=== PATIENT | male | born 1960 | race Caucasian/White ===

== ENCOUNTER 2022-02-02 09:37 | Emergency (ER) | payer OTHER, SELFPAY ==
[2022-02-02 10:40] VITALS: BP 124/85; PULSE 89; RESP 20; TEMP 37.3; O2SAT 96; BMI 23.6
--- NOTE | 2022-02-02 11:05 | HMH.EDUTC ---
[facility] [place] Clinical Impression: Gastroenteritis, Viral syndrome Disposition: Home, Self-Care Condition on Discharge: Good Instructions: Viral Gastroenteritis, DI for Viral Gastroenteritis -- Adult, Gastroenteritis Diet Additional Instructions: Drink plenty of fluids. Take tylenol or ibuprofen for pain or fever. Take the medications as directed. Follow up with your regular doctor. GO TO THE ER FOR ANY WORSENING SYMPTOMS The promethazine will make you drowsy, so don't drive or operate heavy machinery after taking it. Prescriptions: Promethazine HCl [Phenergan 25mg tab] 25 mg PO Q6H PRN #20 tab PRN Reason: Nausea And Vomiting Transmission Status: Received by [facility] Referrals: Aramis Vázquez [Primary Care Provider] - Time of Disposition: 13:31 Medical Decision Making - Medical Records Medical records reviewed: No: I reviewed the patient's medical records. - Bay Inquiry Pt receiving controlled substance: No Vital Signs: 02/02/22 10:40 02/02/22 14:39 Temperature 99.1 F 99.1 F Temperature Source Oral Pulse Rate 89 Pulse Rate [Radial] 89 Respiratory Rate 20 20 Blood Pressure 124/85 Blood Pressure [Right Arm] 124/85 Blood Pressure Mean [Right Arm] 98 02 Sat by Pulse Oximetry 96 - Lab Data Lab Results 02/02/22 11:11: Group A Strep Rapid Negative 02/02/22 11:11: Influenza Type A Ag Negative, Influenza Type B Ag Negative 02/02/22 12:00: Sodium 140, Potassium 4.2, Chloride 104, Carbon Dioxide 28, Anion Gap 12.2, BUN 17, Creatinine 0.50 L, Estimated Creat Clear 69, Estimated GFR 169, Est GFR ( Amer) 205, Glucose 93, Calcium 9.0, Total Bilirubin 0.5, AST 41, ALT 29, Alkaline Phosphatase 101, Total Protein 6.8, Albumin 4.1, Globulin 2.7, Albumin/Globulin Ratio 1.5, Amylase 69, Lipase 32 02/02/22 12:26: WBC 6.5, RBC 4.88, Hgb 15.5, Hct 45.6, MCV 93.3, MCH 31.7 H, MCHC 34.0, RDW 12.5, Plt Count 146, MPV 8.5, Neut % (Auto) 61.8, Lymph % (Auto) 26.8, [place] % (Auto) 9.1, Eos % (Auto) 0.6, Baso % (Auto) 1.6, Neut # (Auto) 4.0, Lymph # (Auto) 1.7, [place] # (Auto) 0.6, Eos # (Auto) 0.0, Baso # (Auto) 0.1 Result diagrams: 02/02/22 12:26 02/02/22 12:00 Orders (Tests/Meds): ED MEDICATIONS Discontinued Medications Generic Name Dose Route Start Last Admin Trade Name Rema PRN Reason Stop Dose Admin Promethazine HCl 25 mg 02/02/22 12:04 02/02/22 12:11 Promethazine Hcl 25mg/Ml 1ml Vial IV 02/02/22 12:05 25 mg ONCE ONE Administration Sodium Chloride 25 ml 02/02/22 12:04 02/02/22 12:12 Sodium Chloride 0.9% 25ml Bag IV 02/02/22 12:05 25 ml ONCE ONE Administration ORDERS Category Date Time Status Strep Screen Confirmation Stat Micro 02/02/22 11:11 Received Medical Decision Narrative: He refused a covid-19 swab or viral swab. [facility] [place] H[place] - General Stated complaint: vomiting since 01/30 Time Seen by Provider: 02/02/22 11:05 Mode of Arrival: Ambulatory Source of Information: Patient Limitations: No Limitations Description of Symptoms (Recalled from Triage Doc. by RN): pt c/o nausea, vomitting and dry heaves. pt has been unable to keep anything down for 3 days. he has not taken his medications. he was prescribed zofran odt by his pcp but he states that it does not help HEENT Symptoms (Recalled from RN notes): No Resp Symptoms (Recalled from RN notes): No Skin Symptoms (Recalled from RN notes): No MS Symptoms (Recalled from RN notes): No Functional Status (Recalled from RN notes): wnl - History of Present Illness Provider Complaint: He states that for the past 3 to 4 days he has had n/v/d. He has had chilling but no fever. He denies abdominal pain. - Related Data Home Medications Medication Instructions Recorded Confirmed buprenorphine 8 mg-naloxone 2 mg 1 film SUBLINGUAL DAILY 08/15/18 09/19/18 sublingual film phenytoin sodium extended 100 mg 100 mg PO TID 08/15/18 09/19/18 capsule ranitidine HCl 150 m
[2022-02-02 11:23] LABS: UTC Influenza A Antigen Negative (Negative)
[2022-02-02 11:24] LABS: UTC Influenza B Antigen Negative (Negative)
[2022-02-02 11:46] LABS: Strep Scrn Group A (Rapid) Negative (Negative)
[2022-02-02 12:27] LABS: Alanine Aminotransferase 29 U/L (12-78); Albumin Level 4.1 g/dl (3.5-5.0); Albumin/Globulin Ratio 1.5 (1.1-1.8); Alkaline Phosphatase 101 U/L (38-126); Amylase 69 U/L (30-110); Anion Gap 12.2 mEq/L (5-15); Aspartate Amino Transferase 41 U/L (17-59); Bilirubin,Total 0.5 mg/dl (0.2-1.3); Blood Urea Nitrogen 17 mg/dl (9-20); Carbon Dioxide 28 mmol/L (22.0-30.0); Chloride 104 mmol/L (98-107); Creatinine Clearance Estimated 69 mL/min (50-200); Estimated Glomerular Filt Rate 169 ml/min (>60); GFR (African American) 205 ML/MIN (>60); Globulin 2.7 g/dL (1.3-3.2); Glucose 93 mg/dl (74-100); Lipase 32 U/L (23-300); Potassium 4.2 mmoL/L (3.5-5.1); Sodium 140 mmol/L (136-145); Total Protein,Serum 6.8 g/dl (6.3-8.2)
[2022-02-02 12:35] LABS: Basophils # 0.1 K/mm3 (0-0.2); Basophils % 1.6 % (0.1-2.0); Eosinophils % 0.6 % (0.1-12.0); Hematocrit 45.6 % (42.0-52.0); Hemoglobin 15.5 g/dL (14.1-18.0); Lymphocytes # 1.7 K/mm3 (0.7-4.5); Lymphocytes % 26.8 % (10-50); Mean Corpuscular Hemoglobin 31.7 pg (27.0-31.2); Mean Corpuscular Volume 93.3 fl (80-94); Mean Platelet Volume 8.5 fl (7.4-10.4); Monocytes # 0.6 K/mm3 (0.1-1.0); Monocytes % 9.1 % (1.7-9.3); Neutrophils % 61.8 % (37.0-80.0); Platelet Count 146 K/mm3 (142-424); Red Blood Count 4.88 M/mm3 (4.60-6.20); Red Cell Distribution Width 12.5 % (11.5-17.5); White Blood Count 6.5 K/mm3 (4.8-10.8)
[2022-02-02 14:39] VITALS: BP 124/85; PULSE 89; RESP 20; TEMP 37.3
== END 2022-02-02 14:44 | disposition home or self-care (01) ==
PROVIDERS: Emergency Provider Nurse Practitioner Family; PCP Family Medicine
DX: K52.9 Noninfective gastroenteritis and colitis, unspecified (principal); B34.9 Viral infection, unspecified; K21.9 Gastro-esophageal reflux disease without esophagitis; Z87.891 Personal history of nicotine dependence; Z79.899 Other long term (current) drug therapy
CPT/HCPCS: 36415; 80053; 82150; 83690; 85025; 87430; 87804; 96374; 99213; G0463

== ENCOUNTER 2025-02-25 10:48 | Outpatient (CLI) | payer OTHER, SELFPAY ==
[2025-02-25 16:53] LABS: Basophils % 0.5 % (0.1-2.0); Eosinophils # 0.1 Kmm3 (0.0-0.4); Hematocrit 44.9 % (42.0-52.0); Hemoglobin 14.6 g/dL (14.1-18.0); Immature Granulocytes # 0.01 10^3uL; Immature Granulocytes % 0.2 %; Lymphocytes # 1.2 K/mm3 (0.7-4.5); Lymphocytes % 20.1 % (10-50); Mean Corpuscular HGB Conc 32.5 g/dL (31.8-35.4); Mean Corpuscular Hemoglobin 30.4 pg (27.0-31.2); Mean Corpuscular Volume 93.3 fl (80-94); Mean Platelet Volume 12.4 fl (7.4-10.4); Monocytes # 0.5 K/mm3 (0.1-1.0); Monocytes % 8.2 % (1.7-9.3); Neutrophils # 4.1 K/mm3 (1.8-7.8); Nucleated Red Blood Cells # 0 10^3/uL; Nucleated Red Blood Cells % 0 %; Platelet Count 151 K/mm3 (142-424); Red Blood Count 4.81 M/mm3 (4.60-6.20); Red Cell Distribution Width 11.7 % (11.5-17.5); Red Cell Distribution Width-SD 39.8 fL; White Blood Count 5.9 K/mm3 (4.8-10.8)
[2025-02-25 17:50] LABS: Alanine Aminotransferase 23 U/L (12-78); Albumin Level 4.7 g/dl (3.5-5.0); Albumin/Globulin Ratio 1.9 (1.1-1.8); Alkaline Phosphatase 122 U/L (38-126); Anion Gap 12.9 mEq/L (5-15); Aspartate Amino Transferase 31 U/L (17-59); Bilirubin,Total 0.3 mg/dl (0.2-1.3); Blood Urea Nitrogen 23 mg/dl (9-20); Calcium 9.2 mg/dl (8.4-10.2); Carbon Dioxide 29 mmol/L (22.0-30.0); Chloride 103 mmol/L (98-107); Estimated Glomerular Filt Rate 136 ml/min (>60); GFR (African American) 164 ML/MIN (>60); Globulin 2.5 g/dL (1.3-3.2); Glucose 104 mg/dl (74-100); Potassium 4.9 mmoL/L (3.5-5.1); Sodium 140 mmol/L (136-145); Total Protein,Serum 7.2 g/dl (6.3-8.2)
[2025-02-25 18:05] LABS: T4 (Thyroxine) 7.2 ug/dl (5.53-11.0)
[2025-02-25 18:19] LABS: Thyroid Stimulating Hormone 0.83 uIU/mL (0.465-4.68)
[2025-02-25 19:05] LABS: HIV Combo NEGATIVE (Negative)
[2025-02-25 19:12] LABS: Hepatitis C Ab Qual. W/ RFX REACTIVE (Negative)
--- OUTSIDE RECORDS SUMMARY | 2025-02-26 10:46 | XMS_ITS | Data Portability ---
Author Organization [facility] ADMIN Address [address] [place] [id number] Assessment No assessment recorded. Plan of Treatment Reminders Order Date Submit Date Provider Last Modified By Organization Details Last Modified Time Details Appointments None record ed. Lab None record ed. Referral None record ed. Procedures None record ed. Surgeries None record ed. Imaging None record ed. Medication Orders None record ed. Patient TargetsNo targets recorded. Patient InstructionsNo instructions recorded. Reason for Referral None Reported. Results Created Date Observation Date Name Description Value Unit Range Abnormal Flag Note LastModifiedBy Organization Detail LastModifiedTime 12/08/19 23 12/07/2022 audio gram No observ ation record ed. BARCODE Not Available 2022 10:47:06 Result Notes None recorded. Problems Name Problem SNOMED Code Status Onset Date Resolution Date Notes Provider Name and Address Organization Details Recorded Time Sensorineural hearing loss 89733768 Active 2022 BUCKY COOK, AUD [address] [facility], [place], [address] , [facility] & [place] 3 09:48:25 Problem Notes None recorded. Medical Equipment None Reported. Allergies Allergen ID Allergen Name Allergen Category Reaction Reaction Severity Criticality Documentation Date Start Date Code Code System Note Provider Name and Address Organization Details Recorded Time 18842 codeine medicatio n nausea Not available high 12/07/2022 2670 [facility] [place] 3 09:07:20 Medications Name Sig Start Date Stop Date Status Note LastModified by Organization Details LastModified Time atorvastati n 40 mg tablet take 1 tablet by mouth daily to lower cholester ol 12/07 completed Not Available Not Available Not Available prednisone 10 mg tablet Tapering daily dose as outlined 5,5,4,4,3 ,3,2,2,1, 1 active Not Available Not Available No t Available azithromyci n 250 mg tablet TAKE 2 TABLETS BY MOUTH ON DAY 1, THEN TAKE 1 TABLET DAILY ON DAYS 2-5 12/07 completed Not Available Not Available Not Available pravastatin 40 mg tablet take 1 tablet by mouth to improve cholester ol 12/07 completed Not Available Not Available Not Available meloxicam 15 mg tablet take 1 tablet by mouth daily as needed for back/side pain active Not Available Not Available No t Available ondansetron HCl 4 mg tablet TAKE 1 tablet Every 6 Hours active Not Available Not Available No t Available Nexium 40 mg capsule,del ayed release Take 1 capsule every day by oral route as directed for 90 days. 12/07 completed Not Available Not Available Not Available phenytoin 125 mg/5 mL oral suspension take 4 ml by mouth 3 times daily as prescribe d 12/07 completed Not Available Not Available Not Available prednisolon e acetate 1 % eye drops,suspe nsion INSTILL 1 DROP INTO LEFT EYE 4 TIMES DAILY FOR 7 DAYS AND THEN INSTILL 1 DROP TWICE DAILY FOR 7 DAYS. 12/07 completed Not Available Not Available Not Available dicyclomine 20 mg tablet TAKE ONE TABLET BY MOUTH FOUR TIMES DAILY NEEDED active Not Available Not Available No t Available meclizine 25 mg tablet TAKE 1 TABLET BY MOUTH 4 TIMES DAILY FOR dizziness active Not Available Not Available No t Available erythromyci n 5 mg/gram (0.5 %) eye ointment place 1/2 inch to the affected eye(s)) 4 times daily for 5-7 days active Not Available Not Available No t Available neomycin-po lymyxin-dex ameth 3.5 mg/mL-10,00 0 unit/mL-0.1 % eye drops place ONE drop IN THE LEFT EYE FOUR TIMES DAILY FOR FOUR DAYS DIRECTED active Not Available Not Available No t Available lidocaine 5 % topical patch APPLY 1 patch daily to affected area active Not Available Not Available No t Available promethazin e 25 mg tablet Take 1 tablet(s) by mouth every 4 to 6 hours as needed for nausea or vomiting. 12/07 completed Not Available Not Available Not Available polyethylen e glycol 3350 17 gram/dose oral powder DISSOLVE ONE capful(17 grams) in EIGHT ounces of water DAILY active Not Available Not Available No t Available ipratropium bromide 42 mcg (0.06 %) nasal spray Place 2 sprays into each nostril 2 times daily as needed active Not Available Not Available No t Available ondansetron 4 mg disintegrat ing tablet PLACE 1-2 TABLETS ON THE TONGUE AND ALLOW TO DISSOLVE EVERY 8 HOURS NEEDED FOR NAUSEA/VO MITING active Not Available Not Available No t Available fluticasone propionate 50 mcg/actuati on nasal spray,suspe nsion Place ONE SPRAY in each nostril TWICE DAILY active Not Available Not Available No t Available buprenorphi ne 8 mg-naloxone 2 mg sublingual tablet dissolve 2&1/2 tablets under the tongue daily active Not Available Not Available No t Available cyclobenzap rine 5 mg tablet take 1 tablet by mouth 3 times daily as needed for muscle spasm active Not Available Not Available No t Available rosuvastati n 10 mg tablet TAKE 1 tablet BY MOUTH DAILY to improve cholester ol 12/07 completed Not Available Not Available Not Available mirtazapine 7.5 mg tablet Take 1-2 tablets at bedtime as needed for sleep active Not Available Not Available No t Available Nexium Packet 40 mg granules delayed release for susp take 1 packet mixed with 15 ml of water Once a day for 30 day(s) active Not Available Not Available No t Available Dilantin Extended 100 mg capsule TAKE ONE CAPSULE BY MOUTH THREE TIMES DAILY active Not Available Not Available No t Available Vitals Date Recorded Body height Body mass index (BMI) Body weight Body temperature Heart rate Systolic blood pressure Diastolic blood pressure Provider Name and Address Organization Details Last Updated DateTime 3 162.56 cm 23.5 kg/m2 31439.1 5 g 98.1 [degF] 99 /min 138 mm[Hg] 84 mm[Hg] [facility] & [place] 3 09:11:30 Social History None recorded. Functional Status None recorded. Mental Status None recorded. Family History Nothing Reported. Medical History Condition Response Acid Reflux (GERD) Y Past Encounters Encounter ID Performer Location Encounter Start Date Encounter Closed Date Diagnosis/Indication Diagnosis SNOMED-CT Code Diagnosis ICD10 Code Diagnosis Note [id number] Anamaria Rutherford MD [facility] [place] [address], [place] [address] 12/07/2022 08:54:45 12/07/2022 09:45:35 Presbycusis 39191109 H91.13 High frequ ency sensorineural hearing loss of bilateral ears [id number] 444544 H90.3 Audiogram reviewed. He does have hearing aids from his father that were serviced and fitted for him today. [id number] DANA KEENAN [facility] [facility], [place] [address] 12/07/2022 09:47:24 12/07/2022 09:47:48 Sensorineural hearing loss 86683657 H90.3 Health Concerns Section Related Observation LastModified by Organization Detai ls LastModified Time None Recorded Concern Status LastModified by Organization Details LastModified Time None Recorded Advance Directives Directive None Recorded Payers Insurance Date Sequence Insurance Name Policy Number Policy Jackson Covered Member ID Jackson Member ID Guarantor Name 04/13/2024 1 [facility] (MEDICAID HMO) Moris Kimbrough [id number] Moris Kimbrough Notes Date Note Type Note Provider Name and Address Organization Details Recorded Time 12/07/2022 text/html Mr. Kimbrough is Her e today for evaluation of hearing loss. Reports that he did have a hearing test at [facility] several years ago. He was told he needed hearing aids at that time but could not afford them. His father is and he does have his old hearing aids and is interested to know if these can possibly be fitted for him. He has been trying to wear them but they are painful if he wears them for a prolonged period of time. Anamaria Rutherford MD [address] [facility], [place], [address], [facility] & [place] 12/07/2022 13:21:20 12/07/2022 text/html Mr. Kimbrough was se en today for an audiologic evaluation due to long-standing/grad ual hearing loss bilaterally per Dr. Anamaria Rutherford MD. Mr. Kimbrough reports that he has some difficulty hearing well in background noise and in social settings. He denies ear pain, drainage, aural fullness/pressure, and dizziness/vertigo. Otoscopic inspection was unremarkable bilaterally following cerumen removal by Dr. Rutherford. BUCKY COOK, AUD [address] [facility], [place], [address], [facility] [place] & [place] 12/07/2022 09:55:53
[2025-02-26 11:23] LABS: Hepatitis B Surface Antigen Negative (Negative)
== END 2025-02-25 23:59 | disposition home or self-care (01) ==
LOC: LAB.DROPOF 02-26 10:44
PROVIDERS: PCP Family Medicine; Visit Provider Family Medicine
DX: K21.9 Gastro-esophageal reflux disease without esophagitis (principal); R53.83 Other fatigue; Z11.59 Encounter for screening for other viral diseases; Z11.4 Encounter for screening for human immunodeficiency virus [HIV]
CPT/HCPCS: 80053; 84402; 84403; 84436; 84443; 85025; 86803; 87389; 87522

== ENCOUNTER 2025-04-16 10:41 | Outpatient (CLI) | payer OTHER, SELFPAY ==
--- OUTSIDE RECORDS SUMMARY | 2025-04-16 10:46 | XMS_ITS | Encounter Summary ---
Author Organization [employer] ([place], [place], [place], [place]) Address [address] [place] [address] Care Team Providers Care Poultry Buyer Name Role Phone Aramis Vázquez MD Primary Care Provider [phone] Reason for Referral * Consultation (Routine) - Closed Specialty Diagnoses / Procedures Referred By Suzanna hawkins Referred To Contact Cardiology Diagnoses Chest pain Amy Gomez, SOLAR INSTALLATION FOREMAN [address] [address] Phone: tel: fax: Sharyn Dillon PA-C [address] [facility] [address] [place] [address] Phone: tel: fax: Referral ID Status Reason Start Date Expiration Date V isits Requested Visits Authorized [id number] Closed Specialty Services Required 11/01/2024 11/01/2025 1 1 Encounter Details Date Type Department Care Team (Late st Contact Info) Description 11/01/2024 Outside Orders [facility] - [place] [address] [place] [address] Amy Gomez, SOLAR INSTALLATION FOREMAN [address] [facility] [address] [place] [address] Chest pain (Primary Dx) Social History Tobacco Use Types Packs/Day Years Used Date Smoking Tobacco: Every Day Cigarettes Smokeless Tobacco: Never Alcohol Use Standard Drinks/Week Comments Never 0 (1 standard drink = 0.6 oz pur e alcohol) Family and Community Support Answer Ernesto e Recorded Help with Day to Day Activities Not on file 10/05/2023 Feeling Lonely or Isolated Not on file 10/05 Educational Attainment Answer Date Tyler rded Speak language other than Citizen [place] at home Not on file 10/05/2023 Want help with school or training Not on file 10/05/2023 Substance Use Answer Date Recorded Used prescription meds for non-medical reasons N ot on file 10/05/2023 Used illegal drugs past 12 months Not on file 10/05/2023 Sex and Gender Information Value Date Recorded Sex Assigned at Not on file Legal Sex Male 5:23 PM CDT Gender Identity Not on file Sexual Orientation Not on file documented as of this encounter Plan of Treatment Upcoming Encounters Date Type Department Care Team (Late st Contact Info) Description 06/16/2025 10:30 AM EDT Office Visit [facility] - [place] [address] [place] [address] Sharyn Dillon PA-C [address] [facility] [address] [place] [address] Scheduled Referrals Name Type Priority Associated Diagnoses Order Schedule Ambulatory referral to Cardiology Outpatient Referral Routine Chest pain Expected: 11/01/2024, Expires: 11/01/2025 documented as of this encounter Visit Diagnoses Diagnosis Chest pain- Primary Unspecified chest pain documented in this encounter Care Teams Poultry Buyer Relationship Specialty Start Date End Date Aramis Vázquez MD [address] [place] [address] PCP - General Family Medicine 09/17/22 documented as of this encounter
--- OUTSIDE RECORDS SUMMARY | 2025-04-16 10:47 | XMS_ITS | Clinical Summary ---
Author Organization [employer] ([place], [place], [place], [place]) Address [address] [place] [address] Care Team Providers Care Supervisor Dyer Name Role Phone Aramis Vázquez MD Primary Care Provider [phone] Allergies Active Allergy Reactions Criticality Noted Date Comments Codeine Nausea And Vomiting, Other (See Comments) 02/02/2022 Medications dicyclomine (BENTYL) 20 mg tablet Take 1 tablet (20 mg total) by mouth 4 (four) times daily as needed. 4 Active ondansetron (ZOFRAN-ODT) 4 MG disintegrating tablet 1 tablet (4 mg total). 4 Active Dilantin Extended 100 mg ER capsule Take 1 capsule (100 mg total) by mouth 3 (three) times daily. 4 Active sucralfate (Carafate) 1 gram tabletIndications: Gastroesophageal reflux disease, unspecified whether esophagitis present,Gastritis Take 1 tablet (1 g total) by mouth 4 (four) times daily before meals and nightly. 120 tablet 4 025 Active NexIUM 40 mg capsuleIndications :Gastroesophageal reflux disease, unspecified whether esophagitis present,Gastritis, Epigastric abdominal pain,Dilated pancreatic duct,Epigastric pain,Hiatal hernia,Gastroesoph ageal reflux disease without esophagitis Take 1 capsule (40 mg total) by mouth Daily (0600). 30 capsule 5 4 025 Active buprenorphine-nalo xone (SUBOXONE) 8-[address] under the tongue. 5 Active cyclobenzaprine (FLEXERIL) 5 MG tablet Take 1 tablet (5 mg total) by mouth 3 (three) times daily as needed. Active lidocaine (LIDODERM) 5 % ptmd patch 1 patch daily. Active meloxicam (MOBIC) 15 MG tablet Take 1 tablet (15 mg total) by mouth daily. Active phenytoin (DILANTIN) 125 mg/5 mL suspension Take by mouth. 02 5 Active polyethylene glycol (MIRALAX) 17 gram/dose powder Take 17 g by mouth daily. Active promethazine (PHENERGAN) 25 MG tablet Take 1 tablet (25 mg total) by mouth 2 (two) times daily as needed. Active ipratropium (ATROVENT) 21 mcg (0.03 %) 0.03% nasal spray Administer 2 sprays into each nostril 2 (two) times daily. Active sertraline (ZOLOFT) 25 MG tablet Take 1 tablet (25 mg total) by mouth daily. Active Active Problems Problem Noted Date Diagnosed Date Gastroenteritis 11/01/2024 Gastroesophageal reflux disease without esophagi tis 12/15/2023 Irritable bowel syndrome 12/15/2023 Chronic low back pain 08/21/2017 Overview (11/01/2024): Problem Code: M54.5; Problem Code Type: ICD-10; Mumps Hyperlipidemia Chest pain Seizures Family History Medical History Relation Name Comments Drug abuse Other Relation Name Status Comments Other Social History Tobacco Use Types Packs/Day Years Used Date Smoking Tobacco: Every Day Cigarettes Smokeless Tobacco: Never Tobacco Cessation:Ready to Q uit: Not Asked; Counseling Given: Not Answered Alcohol Use Standard Drinks/Week Comments Never 0 (1 standard drink = 0.6 oz pur e alcohol) Family and Community Support Answer Ernesto e Recorded Help with Day to Day Activities Not on file 10/05/2023 Feeling Lonely or Isolated Not on file 10/05 Educational Attainment Answer Date Tyler rded Speak language other than [place] at home Not on file 10/05/2023 Want [...] on file Sexual Orientation Not on file Last Filed Vital Signs Vital Sign Reading Time Taken Comments Blood Pressure 120/80 12/12/2024 10:55 AM EDT Pulse 102 12/12/2024 10:55 AM EDT Temperature 36.8 C (98.3 F) 09/17/2024 11:11 AM EST Respiratory Rate 20 11/14/2024 10:43 AM EST Oxygen Saturation 95% 12/12/2024 10:55 AM EDT Inhaled Oxygen Concentration - - Weight 59 kg (130 lb) 12/12/2024 10:55 AM EDT Height 162.6 cm (5' 4 ) 12/12/2024 10:55 AM EDT Body Mass Index 22.31 12/12/2024 10:55 AM EDT Plan of Treatment Upcoming Encounters Date Type Department Care Team (Late st Contact Info) Description 06/16/2025 10:30 AM EDT Office Visit [facility] - [place] [address] [place] [address] Sharyn Dillon PA-C [address] [facility] [address] [place] [address] Health Maintenance Due Date Last Done Comments CT Colonography 1960 Colonoscopy 1960 Colorectal Cancer Screening 1960 FOBT/FIT 1960 Fit-DNA (Cologuard) 1960 Sigmoidoscopy 1960 Depression Screening (12+) 1972 Tobacco Cessation Counseling and Screening (12+) 1972 HIV Screening 1975 Hepatitis C Screening 1978 Pneumococcal 50+ years (1 of 2 - PCV) 1979 Lipid Panel 1995 Shingles Vaccine (Zoster) (2 of 2) 11/24/20212021 COVID-19 VACCINE (3 - season) 2024, 04/18/2021 DTAP/TDAP/TD VACCINES (2 - Td or Tdap) 04/15/2025 Influenza Vaccine (#1) 2025 Respiratory Syncytial Virus (RSV) Adult or (1 - 1-dose 75+ series) 2035 Insurance [employer] [place] Care Teams Supervisor Dyer Relationship Specialty Start Date End Date Aramis Vázquez MD [place] [address] PCP - General Family Medicine 09/17/22
--- OUTSIDE RECORDS SUMMARY | 2025-04-16 10:47 | XMS_ITS | Clinical Summary ---
Author Organization [employer] [facility] Address [address] [place] [address] Care Team Providers Care Fire Hose Curer Name Role Phone Unavailable Primary Care Provider Unavailabl e Social History Tobacco Use Types Packs/Day Years Used Date Smoking Tobacco: Never Assessed Abuse Screen Answer Date Recorded Unsafe at Home or Work/School Not on file Feels Threatened by Someone? Not on file 07/2023 Does Anyone Keep You from Co ntacting Others or Doint Things Outside the Home? Not on file 07/05/2023 Physical Sign of Abuse Present Not on file 1 Housing Stability Answer Date Recorded Current Living Arrangements Not on file 06/25 Potentially Unsafe Housing Conditions Not on eugene e 07/05/2023 Family and Community Support Answer Ernesto e Recorded Help with Day-to-Day Activities Not on file 07/05/2023 Lonely or Isolated Not on file 07/05/2023 Employment Answer Date Recorded Do you want help finding or keeping work or a daniel b? Not on file 07/05/2023 Disabilities Answer Date Recorded Concentrating, Remembering, or Making Decisions Difficulty Not on file 07/05/2023 Doing Errands Independently Difficulty Not on fi le 07/05/2023 Education Answer Date Recorded Help with school or training? Not on file Preferred Language Not on file 07/05/2023 Sex and Gender Information Value Date Recorded Sex Assigned at Not on file Legal Sex Male 12:27 PM EDT Gender Identity Not on file Sexual Orientation Not on file Plan of Treatment Health Maintenance Due Date Last Done Comments ANNUAL PHYSICAL 1960 HEPATITIS C SCREENING 1960 TDAP/TD VACCINES (1 - Tdap) 1979 COLOGUARD 2005 COLON CANCER SCREENING 5 YEAR SIGMOIDOSCOPY 2005 COLONOSCOPY [address] CANCER SCREENING [address] COLONOGRAPHY 2005 FECAL OCCULT BLOOD TEST 2005 FIT Testing (1 year) 2005 Pneumococcal Vaccine 50+ (1 of 1 - PCV) 2010 ZOSTER VACCINE (1 of 2) 2010 COVID-19 Vaccine ( - 2023-25 season) 2024 INFLUENZA VACCINE 06/25/2025
--- OUTSIDE RECORDS SUMMARY | 2025-04-16 10:47 | XMS_ITS | Encounter Summary ---
Author Organization Healthcare Address [address] [place] [address] Care Team Providers Care Highway Commissioner Name Role Phone Yadira Boston APRN Primary Care Provider [phone] Reason for Referral * Consultation (Routine) - Authorized Specialty Diagnoses / Procedures Referred By Contac t Referred To Contact Gastroenterology Diagnoses Weight loss, unintentional Dilated pancreatic duct Olman Vaughn MD [address] [place] [address] Phone: tel: fax: Referral ID Status Reason Start Date Expiration Date Visits Requested Visits Authorized [id number] Authorized Specialty Services Required 07/02/2024 01/01/2026 1 1 Encounter Details Date Type Department Care Team (Latest Contact Info) Description 07/02/2024 [facility] [address] [place] [address] Olman Vaughn MD [address] [place] [address] Weight loss, unintentional (Primary Dx); Dilated pancreatic duct Social History Tobacco Use Types Packs/Day Years Used Date Smoking Tobacco: Every Day Sex and Gender Information Value Date Recorded Sex Assigned at Not on file Legal Sex Male 8:19 PM EDT Gender Identity Not on file Sexual Orientation Not on file documented as of this encounter Plan of Treatment Scheduled Referrals Name Type Priority Associated Diagnoses Order Schedule Ambulatory referral to Gastroenterology Outpatient Referral Routine Weight loss, unintentional Dilated pancreatic duct Expected: 07/02/2024 (Approximate), Expires: 12/31/2025 documented as of this encounter Visit Diagnoses Diagnosis Weight loss, unintentional- Primary Loss of weight Dilated pancreatic duct documented in this encounter Care Teams Highway Commissioner Relationship Specialty Start Date End Date Yadira Boston, PERCY [address] [place] [address] PCP - General 02/05/21 documented as of this encounter
--- OUTSIDE RECORDS SUMMARY | 2025-04-16 10:47 | XMS_ITS | Referral Summary ---
Author Organization [facility] ([place], [place], [place], [place]) Address [address] [place] [address] Care Team Providers Care Container Coordinator Name Role Phone Aramis Vázquez MD Primary Care Provider [phone] Allergies Active Allergy Reactions Criticality Noted Date [...] Type: ICD-10; Mumps Hyperlipidemia Chest pain Seizures Social History Tobacco Use Types Packs/Day Years [...] Date Tyler rded Speak language other than Upper Sorbian at home Not on file 10/05/2023 Want [...] Description 06/16/2025 10:30 AM EDT Office Visit [facility] Card[facility] - [place] [address] [place] [address] Sharyn Dillon PA-C [address] [address] [facility] Care Teams Container Coordinator Relationship Specialty Start Date End Date Aramis Vázquez MD [address] [place] [address] PCP - General Family Medicine 09/17/22
--- OUTSIDE RECORDS SUMMARY | 2025-04-16 10:47 | XMS_ITS | Clinical Summary ---
Author Organization Healthcare Address [address] [place] [address] Care Team Providers Care Resistor Inspector Name Role Phone Yadira Boston EPRCY Primary Care Provider [phone] Immunizations Immunization Administration Dates Next Due Tdap 04/15/2015 Family History Medical History Relation Name Comments Conversions - Other Father Bypass g raft stenosis Diabetes Father Other cancer Father Hernia Mother Relation Name Status Comments Father Mother Social History Tobacco Use Types Packs/Day Years Used Date Smoking Tobacco: Every Day Sex and Gender Information Value Date Recorded Sex Assigned at Not on file Legal Sex Male 8:19 PM EDT Gender Identity Not on file Sexual Orientation Not on file Last Filed Vital Signs Vital Sign Reading Time Taken Comments Blood Pressure - - Pulse - - Temperature - - Respiratory Rate - - Oxygen Saturation - - Inhaled Oxygen Concentration - - Weight 58.1 kg (128 lb) 03/02/2015 1:30 PM EDT Height 162.6 cm (5' 4 ) 03/02/2015 1:30 PM EDT Body Mass Index 21.97 03/02/2015 1:30 PM EDT Plan of Treatment Health Maintenance Due Date Last Done Comments [facility]-Depression Screening 1960 [facility]-Infant/Child/Adol SDOH Screenings 1960 [facility]- SDOH Screenings 1978 [facility]-Adult SDOH Screenings 1978 CT Colonography 2005 Colonoscopy 2005 FIT 2005 FOBT 2005 Sigmoidoscopy 2005 [facility]-Pneumococcal Vaccine: 50 + Years (1 of 1 - PCV) 2010 [facility]-Zoster Vaccines (2 of 2) 11/24/2021 09/29/2021 [id number] Vaccine ( - 2023- season) 2024 05/16/2021, 04/18/2021 [facility]-DTaP,Tdap,and Td Vaccine s (2 - Td or Tdap) 04/15/2025 04/15/2015 [facility]-Influenza Vaccine (#1) 2025 FIT-DNA 01/15/2027 01/16/2024 [facility]-Colorectal Cancer Screening 01/15/2027 [facility]-RSV Vaccine: 60+ Years o r (1 - 1-dose 75+ series) 2035 HPV Vaccines Aged Out No longer eligi ble based on patient's age to complete this topic [facility]-HIB Vaccines Aged Out No longer e ligible based on patient's age to complete this topic [facility]-Hepatitis A Vaccines Aged Out No longer eligible based on patient's age to complete this topic [facility]-IPV Vaccines Aged Out No longer e ligible based on patient's age to complete this topic [facility]-Rotavirus Vaccines Aged Out No lo nger eligible based on patient's age to complete this topic Care Teams Resistor Inspector Relationship Specialty Start Date End Date Yadira Boston, PERCY [address] [place] [address] PCP - General 02/05/21
[2025-04-16 11:27] LABS: Hematocrit 42.9 % (42.0-52.0); Hemoglobin 14.1 g/dL (14.1-18.0); Mean Corpuscular HGB Conc 32.9 g/dL (31.8-35.4); Mean Corpuscular Hemoglobin 30.3 pg (27.0-31.2); Mean Corpuscular Volume 92.1 fl (80-94); Platelet Count 149 K/mm3 (142-424); Red Blood Count 4.66 M/mm3 (4.60-6.20); White Blood Count 5.8 K/mm3 (4.8-10.8)
[2025-04-16 11:58] LABS: Albumin Level 4.5 g/dl (3.5-5.0); Chloride 100 mmol/L (98-107); Sodium 135 mmol/L (136-145)
[2025-04-16 11:59] LABS: Potassium 4.6 mmoL/L (3.5-5.1)
[2025-04-16 12:01] LABS: Alanine Aminotransferase 22 U/L (12-78); Albumin/Globulin Ratio 1.7 (1.1-1.8); Alkaline Phosphatase 124 U/L (38-126); Anion Gap 8.6 mEq/L (5-15); Aspartate Amino Transferase 32 U/L (17-59); Bilirubin,Total 0.7 mg/dl (0.2-1.3); Blood Urea Nitrogen 29 mg/dl (9-20); Carbon Dioxide 31 mmol/L (22.0-30.0); Creatinine,Serum 0.60 mg/dl (0.66-1.25); Estimated Glomerular Filt Rate 136 ml/min (>60); GFR (African American) 164 ML/MIN (>60); Globulin 2.6 g/dL (1.3-3.2); Total Protein,Serum 7.1 g/dl (6.3-8.2)
[2025-04-16 12:02] LABS: Calcium 9.5 mg/dl (8.4-10.2); Glucose 114 mg/dl (74-100)
[2025-04-16 12:52] LABS: RBC Morphology Normal; Total Cells Counted 100
[2025-04-16 21:30] LABS: Phenytoin (Dilantin) 8.8 ug/ml (10-20)
[2025-04-16 22:17] LABS: Vitamin B12 823 pg/mL (239-931)
[2025-04-16 23:47] LABS: Folate 10.30 ng/mL
[2025-04-18 15:15] LABS: Phenytoin (Dilantin) Free 0.7 ug/mL (1.0-2.0)
== END 2025-04-16 23:59 | disposition home or self-care (01) ==
LOC: LAB 10:42
PROVIDERS: PCP Family Medicine; Visit Provider Specialist
DX: Z86.69 Personal history of other diseases of the nervous system and sense organs (principal); Z79.899 Other long term (current) drug therapy
CPT/HCPCS: 36415; 80053; 80185; 80186; 82607; 82746; 85007; 85014; 85018; 85048; 85049

== ENCOUNTER 2025-04-23 08:56 | Outpatient (CLI) | payer OTHER, SELFPAY ==
--- OUTSIDE RECORDS SUMMARY | 2025-04-23 08:58 | XMS_ITS | Encounter Summary ---
Author Organization [employer] ([place], [place], [place], [place]) Address [address] [place] [address] Care Team Providers Care Solaris Administrator Name Role Phone Aramis Vázquez MD Primary Care Provider [phone] Reason for Referral * Consultation (Routine) - Closed Specialty Diagnoses / Procedures Referred By Suzanna hawkins Referred To Contact Cardiology Diagnoses Chest pain Amy Gomez, NIGHT MANAGER [address] [address] Phone: tel: fax: Sharyn Dillon PA-C 227 [facility] [address] [place] [address] Phone: tel: fax: Referral ID Status Reason Start Date Expiration Date V isits Requested Visits Authorized [id number] Closed Specialty Services Required 11/01/2024 11/01/2025 1 1 Encounter Details Date Type Department Care Team (Late st Contact Info) Description 11/01/2024 Outside Orders [facility] Cardiology - [place] [address] [place] [address] Amy Gomez, NIGHT MANAGER [address] [facility] [address] [place] [address] Chest pain (Primary Dx) Social [...] Date Tyler rded Speak language other than Botswanan at home Not on file 10/05/2023 Want [...] Description 06/16/2025 10:30 AM EDT Office Visit [facility] Cardiology - [place] [address] [place] [address] Sharyn Dillon PA-C 227 [facility] [address] [place] [address] Scheduled Referrals Name Type Priority Associated Diagnoses Order Schedule Ambulatory referral to Cardiology Outpatient Referral Routine Chest pain Expected: 11/01/2024, Expires: 11/01/2025 documented as of this encounter Visit Diagnoses Diagnosis Chest pain- Primary Unspecified chest pain documented in this encounter Care Teams Solaris Administrator Relationship Specialty Start Date End Date Aramis Vázquez MD [address] [place] [address] PCP - General Family Medicine 09/17/22 documented as of this encounter
--- OUTSIDE RECORDS SUMMARY | 2025-04-23 08:59 | XMS_ITS | Clinical Summary ---
Author Organization [facility] Address [address] [place] [address] Care Team Providers Care Remedial Masseur Name Role Phone Unavailable Primary Care Provider [...]
--- OUTSIDE RECORDS SUMMARY | 2025-04-23 08:59 | XMS_ITS | Clinical Summary ---
Author Organization Healthcare Address [address] [place] [address] Care Team Providers Care Senior Biostatistician/Group Leader Name Role Phone Yadira Boston PERCY Primary Care Provider [phone] Immunizations Immunization Administration Dates Next Due Tdap [...] [facility]-Zoster Vaccines (2 of 2) 11/24/2021 09/29/2021 [id number] Vaccine ( - 2023- season) 2024 05/16/2021, [...] age to complete this topic Care Teams Senior Biostatistician/Group Leader Relationship Specialty Start Date End Date Yadira Boston, PERCY [address] [place] [address] PCP - General 02/05/21
--- OUTSIDE RECORDS SUMMARY | 2025-04-23 08:59 | XMS_ITS | Referral Summary ---
Author Organization [employer] ([place], [place], [place], [place]) Address [address] [place] [address] Care Team Providers Care Fruit Thinner Machine Operator Name Role Phone Aramis Vázquez MD Primary Care Provider [phone] Allergies Active Allergy Reactions Criticality Noted Date [...] Date Tyler rded Speak language other than Frisian at home Not on file 10/05/2023 Want [...] Description 06/16/2025 10:30 AM EDT Office Visit [facility] Cardiology - [place] [address] [place] [address] Sharyn Dillon PA-C [address] [address] [facility] Care Teams Fruit Thinner Machine Operator Relationship Specialty Start Date End Date Aramis Vázquez MD [address] [place] [address] PCP - General Family Medicine 09/17/22
--- OUTSIDE RECORDS SUMMARY | 2025-04-23 08:59 | XMS_ITS | Encounter Summary ---
Author Organization Healthcare Address [address] [place] [address] Care Team Providers Care Battery Parts Assembler Name Role Phone Yadira Boston APRN Primary Care Provider [phone] Reason for Referral * Consultation (Routine) - Authorized Specialty Diagnoses / Procedures Referred By Contac t Referred To Contact Gastroenterology Diagnoses Weight loss, unintentional Dilated pancreatic duct Olman Vaughn MD [address] [place] [address] Phone: tel: fax: Referral ID Status Reason Start Date Expiration Date Visits Requested Visits Authorized [id number] Authorized Specialty Services Required 07/02/2024 01/01/2026 1 1 Encounter Details Date Type Department Care Team (Latest Contact Info) Description 07/02/2024 [facility] [address] [place] [address] lOman Vaughn MD [address] [place] [address] Weight loss, unintentional (Primary Dx); [...] duct documented in this encounter Care Teams Battery Parts Assembler Relationship Specialty Start Date End Date Yadira Boston, PERCY [address] [place] [address] PCP - General 02/05/21 documented as of this encounter
--- OUTSIDE RECORDS SUMMARY | 2025-04-23 08:59 | XMS_ITS | Clinical Summary ---
Author Organization [employer] ([place], [place], [place], [place]) Address [address] [place] [address] Care Team Providers Care Parts Salesperson Name Role Phone Aramis Vázquez MD Primary Care Provider [phone] Allergies Active Allergy Reactions Criticality Noted Date [...] Date Tyler rded Speak language other than Swedish at home Not on file 10/05/2023 Want [...] Description 06/16/2025 10:30 AM EDT Office Visit [facility] Cardiology - [place] [address] [place] [address] Sharyn Dillon PA-C [address] [facility] [address] [place] [address] Health Maintenance Due Date Last [...] - 1-dose 75+ series) 2035 Insurance [facility] Care Teams Parts Salesperson Relationship Specialty Start Date End Date Aramis Vázquez MD [facility] [place] [address] PCP - General Family Medicine 09/17/22
--- NOTE | 2025-04-23 09:30 | MR_ITS ---
FINAL REPORT TECHNIQUE: Multiplanar and multisequence imaging of the brain was obtained before and after contrast administration. CLINICAL HISTORY: hx of seizures, changing medication, intermediate use of dilantin COMPARISON: None FINDINGS: Brain parenchymal: There is no mass effect or midline shift. There is bilateral periventricular and subcortical white matter signal changes, with a slight frontal predominance. The cerebellum and brainstem are without acute abnormality. Ventricles: The ventricles are symmetric in size and configuration without hydrocephalus. Extra-axial spaces: No extra-axial fluid collections. Diffusion imaging: No areas of restricted diffusion to suggest acute infarct. Flow voids: Flow voids within the major intracranial vessels are preserved. Soft tissues: Soft tissues are without acute abnormality. Post contrast imaging: No abnormal enhancement. IMPRESSION: Bilateral periventricular and subcortical white matter signal changes, with a slight frontal predominance. This may represent changes of ischemic microvascular disease, vasculitis, or demyelination. No focal enhancement is identified intracranially. Reviewed, Interpreted and Dictated by Erica Luong MD Transcribed by Rohini Hernandez Authenticated and [facility]
[2025-04-23] MEDS: SODIUM CHLORIDE 0.9% 10ML SYR (RAD ONLY) 10 ML IV (09:48)
[2025-04-23] MEDS: GADOTERIDOL INJ 20ML SYRINGE 12 ML IV (09:48)
== END 2025-04-23 23:59 | disposition home or self-care (01) ==
LOC: RAD 08:57
PROVIDERS: PCP Family Medicine; Visit Provider Specialist
DX: R90.89 Other abnormal findings on diagnostic imaging of central nervous system (principal); Z79.899 Other long term (current) drug therapy; Z86.69 Personal history of other diseases of the nervous system and sense organs
CPT/HCPCS: 70553; A9576